=== PATIENT | female | born 1955 | race Caucasian/White ===

== ENCOUNTER 2024-08-21 06:02 | Day surgery (SDC) | payer MEDICARE ==
[~2024-08-21] VITALS: Ht 170.2 cm; Wt 94.0 kg
[2024-08-21] VITALS (10 sets, daily range): BP systolic 101–150; BP diastolic 49–76; PULSE 53–68; RESP 13–17; TEMP 98.5; O2SAT 92–99
[~2024-08-21 06:02] MED LIST: CELE-193 PO; LEVO25TA2 PO; [UNRECOGNIZED DRUG - CODE] PO; famotidine 20mg tablet PO ONE; ringers solution, lacted 1,000 ML IV SCH
[2024-08-21] MEDS: ceFAZolin 2gm in dextrose, iso 50 ML IV ONE (06:23)
[2024-08-21] MEDS ORDERED: bacitracin 15gm ointment TP ONE (07:01)
[2024-08-21] MEDS ORDERED: BUPIVAcaine 2.5mg/ml inj 50ml vial (contains preservative) ONE (07:01)
[2024-08-21] MEDS ORDERED: cloNIDine hcl/PF 100mcg/ml inj ONE (08:30)
[2024-08-21] MEDS ORDERED: scopolamine 1MG/72H patch 1 PATCH PATCH.TD.3 TD ONE (08:33)
[2024-08-21] MEDS ORDERED: sevoflurane 250ml liquid IH ONE (08:36)
[2024-08-21] MEDS ORDERED: fentaNYL/PF 50MCG/1 ML 2ML syringe ONE (08:37)
[2024-08-21] MEDS ORDERED: hydrALAZINE 20mg/ml inj. IV PRN (09:10)
[2024-08-21] MEDS ORDERED: meperidine/PF 25mg/ml syringe IV PRN ×3 (09:10)
[2024-08-21] MEDS ORDERED: proCHLORperazine 10 MG/2 ml inj IV PRN (09:10)
[2024-08-21] MEDS ORDERED: ringers solution, lacted 1,000 ML IV SCH (09:10)
[2024-08-21] MEDS ORDERED: morphine 2 MG/ML inj. syringe IV PRN (09:10)
[2024-08-21] MEDS ORDERED: labetalol 20mg/4ml (5mg/ml) syringe IV PRN (09:10)
[2024-08-21] MEDS ORDERED: morphine 4 MG/ML inj SYRINge IV PRN (09:10)
[2024-08-21] MEDS ORDERED: midazolam 1 mg/ML 2ml injection ONE (09:28)
[2024-08-21] MEDS ORDERED: 0.9 % SODIUM CHLORIDE 10 ML VIAL ONE ×2 (10:37)
[2024-08-21] MEDS ORDERED: ondansetron/PF 4mg/2ml inj ONE (10:37)
[2024-08-21] MEDS ORDERED: dexamethasone sod phosphate 4mg/ml inj. ONE (10:37)
[2024-08-21] MEDS ORDERED: ROPIVAcaine 0.5% (5mg/ml) 30ml vial ONE (10:37)
[2024-08-21] MEDS ORDERED: propofol inj 20 ML IV ONE (10:37)
[2024-08-21] MEDS ORDERED: LIDOcaine 2% (20mg/ml) 5ml vial ONE (10:37)
[2024-08-21] MEDS: ondansetron/PF 4mg/2ml inj IV PRN (12:23)
[2024-08-21] MEDS: acetaminophen 1,000mg/100ml IV 100 ML IV ONE (12:24)
== END 2024-08-21 13:03 | disposition home or self-care (01) ==
LOC: PAS 06:02
PROVIDERS: ATTEND Podiatrist Foot & Ankle Surgery
DX: M21.41 Flat foot [pes planus] (acquired), right foot (principal); M79.671 Pain in right foot; M72.2 Plantar fascial fibromatosis; M25.471 Effusion, right ankle; G89.18 Other acute postprocedural pain; E03.9 Hypothyroidism, unspecified; E78.5 Hyperlipidemia, unspecified; G47.33 Obstructive sleep apnea (adult) (pediatric); Z79.82 Long term (current) use of aspirin; Z79.890 Hormone replacement therapy; Z79.891 Long term (current) use of opiate analgesic; Z79.899 Other long term (current) drug therapy; Z90.49 Acquired absence of other specified parts of digestive tract; Z90.89 Acquired absence of other organs; Z98.51 Tubal ligation status; Z98.890 Other specified postprocedural states; Z88.0 Allergy status to penicillin; Z88.8 Allergy status to other drugs, medicaments and biological substances
CPT/HCPCS: 27687; 27691; 27695; 28300; 64447; 64450; 73620; 76942; 82948; A4215; A4618; A6223; A6402; A6449; A7000; C1713; J0131; J0690; J0735; J1100; J2003; J2250; J2405; J2704; J2795; J3010; J7030; J7120; Z7506; Z7508; Z7512; Z7610; 76000; J3490